=== PATIENT | female | born 2000 | race African-American/Black ===

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

== ENCOUNTER 2018-09-01 19:01 | Emergency (ER) | payer OTHER ==
[~2018-09-01] VITALS: Ht 162.6 cm; Wt 84.1 kg
[2018-09-01] MEDS ORDERED: SODIUM CHLORIDE 0.9% 1,000 ML IV ONE (20:15)
[2018-09-01] MEDS ORDERED: ONDANSETRON HCL 4 MG/2 ML VIAL IVP ONE (20:15)
[2018-09-01 20:54] VITALS: BP 114/76
== END 2018-09-01 21:46 | disposition home or self-care (01) ==
LOC: EMS 19:02
DX: A05.8 Other specified bacterial foodborne intoxications (principal)
CPT/HCPCS: 81002; 81025; 96361; 96374; 99283; J2405; J7030